=== PATIENT | male | born 1985 | race Caucasian/White ===

== ENCOUNTER 2017-11-12 03:17 | Emergency (ER) | payer BC, MEDICAID ==
[2017-11-12] MEDS ORDERED: DIAZEPAM INJ 10 MG/2 ML DISP.SYRIN IM ONE (03:54)
[2017-11-12] MEDS ORDERED: KETOROLAC TROMETHAMINE INJ/PF 30 MG/1 ML SDV IM ONE (03:54)
--- NOTE | 2017-11-12 05:31 | ER Document Report ---
ED General - General Chief Complaint: Back Pain Stated Complaint: BACK PAIN Time Seen by Provider: 11/12/17 03:42 Notes: Patient is a 32-year-old male who presents with complaint of pain in his lower back. He said he woke up and moved out of bed in his back suddenly when spasm. He says he has spasm over both sides of his back. He denies any loss of bowel control. No urinary retention. No weakness or numbness into the legs. Says the pain does radiate some around flanks. He denies any true anterior abdominal pain. No dysuria. No history of kidney stones. Says he does have a previous history of a pinched nerve in his back but has never had spasm this intense before. He has no other complaints at this time. Recent traumas or injuries. No recent fevers or infection. TRAVEL OUTSIDE OF THE [place] IN LAST 30 DAYS: No Past Medical History - Social History Smoking Status: Never Smoker Chew tobacco use (# tins/day): No Frequency of alcohol use: None Drug Abuse: None Family History: Reviewed & Not Pertinent Patient has suicidal ideation: No Patient has homicidal ideation: No Renal/ Medical History: Denies: Hx Peritoneal Dialysis Review of Systems - Review of Systems Notes: My Normal Review Basic REVIEW OF SYSTEMS: CONSTITUTIONAL : Denies fever, chills, or sweats. Denies recent illness.stipation. Last BM: MUSCULOSKELETAL: Low back pain SKIN: Denies rash or skin lesions. NEUROLOGICAL: Denies sensory or motor loss. ALL OTHER SYSTEMS REVIEWED AND NEGATIVE. Physical Exam - Vital signs Vitals: Temp Pulse Resp BP Pulse Ox 97.2 F 64 20 142/84 H 100 11/12/17 03:20 11/12/17 03:20 11/12/17 03:20 11/12/17 03:20 11/12/17 03:20 - Notes Notes: General Appearance: Well nourished, alert, cooperative, no acute distress, mild to moderate obvious discomfort. Vitals: reviewed, See vital signs table. Eyes: PERRL, EOMI, Conjuctiva clear Abdomen: Normal BS, soft, No rigidity, mild left-sided abdominal tenderness to palpation, No guarding, no rebound, Back: Easily reproducible pain to palpation over lumbar paraspinal musculature bilaterally. Extremities: strength 5/5 in all extremities, good pulses in all extremities, no swelling or tenderness in the extremities, no edema. Skin: warm, dry, appropriate color, no rash Neuro: speech clear, oriented x 3, normal affect, responds appropriately to questions. Normal strength with plantar dorsiflexion of both feet. Good distal sensation. Course - Re-evaluation Re-evalutation: 11/12/17 05:26 Patient is feeling much improved after the medication. I will discharge him a prescription for medications to help with his pain. Encourage him return to ER if he has worsening pain, fevers, leg weakness or numbness, loss of bowel control, etc. Patient agrees with plan will be discharged home. Dictation of this chart was performed using voice recognition software; therefore, there may be some unintended grammatical errors. - Vital Signs Vital signs: Temp Pulse Resp BP Pulse Ox 97.2 F 64 20 142/84 H 100 11/12/17 03:20 11/12/17 03:20 11/12/17 03:20 11/12/17 03:20 11/12/17 03:20 Discharge - Discharge Clinical Impression: Back pain Qualifiers: Back pain location: low back pain Chronicity: acute Back pain laterality: bilateral Sciatica presence: without sciatica Qualified Code(s): M54.5 - Low back pain Condition: Good Disposition: HOME, SELF-CARE Additional Instructions: LOW BACK PAIN: Three out of every four people will have an episode of disabling back pain during their lifetime. Most commonly the pain is due to straining of the muscles and ligaments in the low back. Usual treatment includes: (1) Rest on a firm surface. Avoid lying on your stomach. (2) Ice pack the painful area. After a few days, gentle heat may be used intermittently to relax the area, or ice packs can be continued. (3) Medication may be needed -- muscle relaxers and antiinflammatory medicines are commonly used. (4) As the back improves, exercises are prescribed to strengthen the back and abdominal muscles. Your doctor will advise you on the proper care for your back at each stage in your recovery. You may be better in a few days -- or healing may take several weeks. If new symptoms of a "herniated disc" (radiation of pain, numbness, or tingling down the back of the leg or weakness in the leg) occur, you should be re-examined. Further testing may be necessary. PAIN MEDICATION INJECTION: You have received an injection of a pain medication. You should experience significant pain relief within 45 minutes. If this injection was a narcotic -- it will impair your judgement, slow your reaction time and make you sleepy (as well as relieve your pain). Narcotics also can cause nausea. You should not drive, work with machinery, or perform any task requiring mental alertness until all effects of the medication are gone -- six to eight hours. Do not take any alcohol, or sedatives, and do not take any other medication without checking with your physician. MUSCLE RELAXERS: Muscle relaxing medications are usually prescribed for acute muscle spasm or injury to the neck and back. They are often combined with antiinflammatory pain medication for increased relief. You may stop the muscle relaxer when the pain and stiffness have improved. Start the medication again if spasms recur. Muscle relaxers may cause drowsiness, especially with the first dose. Do not operate machinery or drive while under the effects of the medication. Most muscle relaxers last up to 24 hours. Do not combine the medication with alcohol. ICE PACKS: Apply ice packs frequently against the painful area. Many different schedules are recommended, such as "20 minutes on, 20 minutes off" or "one hour ice, two hours rest." If you need to work, you may need to go longer between ice treatments. You should plan to have the area ice packed AT LEAST one fourth of the time. The ice should be applied over the wrap, tape, or splint, or over a layer of cloth -- not directly against the skin. Some ice bags have a built-in cloth and can be put directly on the skin. WARM PACKS: After approximately two days, apply gentle heat (such as a heating pad or hot water bottle) for about 20 to 30 minutes about every two hours -- at least four times daily. Warmth and elevation will help you make a more rapid recovery , and will ease the pain considerably. Do not use HOT heat, and never apply heat for longer than 30 minutes. The continuous heat can invisibly damage skin and muscles -- even when no burn is seen on the surface. Damaged muscles can make you MORE sore. FOLLOW-UP CARE: If you have been referred to a physician for follow-up care, call the physician s office for an appointment as you were instructed or within the next two days. If you experience worsening or a significant change in your symptoms, notify the physician immediately or return to the Emergency Department at any time for re-evaluation. Please do not lift anything heavy or over exert yourself of the next week. Please return to the ER immediately if you have worsening pain, leg weakness or numbness, fevers, loss of control of your bowels, or inability to urinate. I have prescribe you Toradol. Do not take other NSAID medicaitons such as Aspirin , Motrin, Ibuprofen, Aleve, or Advil when taking this medication. It is okay to take Tylenol. Prescriptions: Ketorolac Tromethamine [Toradol 10 mg Tablet] 10 mg PO Q8HP PRN #15 tablet PRN Reason: Metaxalone [Skelaxin 800 mg Tablet] 800 mg PO ASDIR PRN #20 tablet PRN Reason:
[2017-11-12 05:49] VITALS: BP 131/75
== END 2017-11-12 05:46 | disposition home or self-care (01) ==
LOC: ER 03:17
DX: M54.5 Low back pain (principal); R25.2 Cramp and spasm; R10.819 Abdominal tenderness, unspecified site
CPT/HCPCS: 99283; 96372; J3360; J1885

== ENCOUNTER 2019-10-13 04:31 | Emergency (ER) | payer BC ==
--- NOTE | 2019-10-13 08:44 | ER Document Report ---
HPI - HPI Time Seen by Provider: 10/13/19 08:14 Pain Level: 3 Context: 34 y/o male presents with insect bite to right hip at 0330. Pt states he does not know what bit him but it "isaacs." Denies fever or drainage from area. - REPRODUCTIVE Reproductive: DENIES: : Past Medical History - Social History Smoking Status: Never Smoker Family History: Reviewed & Not Pertinent Patient has suicidal ideation: No Patient has homicidal ideation: No Renal/ Medical History: Denies: Hx Peritoneal Dialysis Vertical Provider Document - CONSTITUTIONAL Agree With Documented VS: Yes Notes: GENERAL: Well-appearing, well-nourished and in no acute distress. HEAD: Atraumatic, normocephalic. EYES: Extraocular movements intact, sclera anicteric, conjunctiva are normal. NECK: Normal range of motion, supple without lymphadenopathy or JVD. EXTREMITIES: Normal range of motion, no pitting or edema. No clubbing or cyanosis. NEUROLOGICAL: Cranial nerves II through XII grossly intact. Normal speech, normal gait. PSYCH: Normal mood, normal affect. SKIN: Approx 1 cm erythematous area noted to right hip. No fluctuance, no drainage. Warm, Dry, normal turgor. - INFECTION CONTROL TRAVEL OUTSIDE OF THE [place] IN LAST 30 DAYS: No Course - Re-evaluation Re-evalutation: 10/13/19 Nontoxic, well appearing 34 y/o male presents with possible insect bite to right hip at 0330. Approx 1 cm erythematous area noted to right hip. Area was circled with marker. Strict return precautions given. Pt to follow up with urgent care in 2 days for recheck. Pt voices understanding and agrees with plan of care. - Vital Signs Vital signs: Temp Pulse Resp BP Pulse Ox 97.6 F 90 20 144/76 H 95 10/13/19 04:42 10/13/19 04:42 10/13/19 04:42 10/13/19 04:42 10/13/19 04:42 Discharge - Discharge Clinical Impression: Cellulitis Qualifiers: Site of cellulitis: extremity Site of cellulitis of extremity: lower extremity Laterality: right Qualified Code(s): L03.115 - Cellulitis of right lower limb Condition: Stable Disposition: HOME, SELF-CARE Additional Instructions: Please take antibiotics as prescribed. Please watch for signs of increased infection: increased redness, increased swelling, fever, pus drainage. Follow up with urgent care in 2 days for recheck. Return to ER for any worsening symptoms including signs of infection, nausea/vomiting, throat/tongue/lip swelling, shortness of breath, or any other symptoms that are concerning to you. Prescriptions: Cephalexin Monohydrate [Keflex 500 mg Capsule] 500 mg PO Q6H 5 Days #20 capsule Referrals: BON YANES MD [COMMUNITY BASED STAFF] - Follow up as needed [facility] [Provider Group] - Follow up as needed
[2019-10-13 08:59] VITALS: BP 131/81
== END 2019-10-13 08:58 | disposition home or self-care (01) ==
LOC: ER 04:31
DX: L03.115 Cellulitis of right lower limb (principal)
CPT/HCPCS: 99281